=== PATIENT | female | born 1975 | race Caucasian/White ===

== ENCOUNTER 2023-01-12 09:48 | Emergency (ER) | payer BC, OTHER | END 2023-01-12 11:35 | disposition home or self-care (01) | LOC: MADERS 09:48 | DX: S93.402A Sprain of unspecified ligament of left ankle, initial encounter (principal); Z87.891 Personal history of nicotine dependence; W01.10XA Fall on same level from slipping, tripping and stumbling with subsequent striking against unspecified object, initial encounter | CPT/HCPCS: 29515 ==